=== PATIENT | male | born 1950 | race African-American/Black ===

== ENCOUNTER 2019-09-06 16:07 | Inpatient (IN) ==
[2019-09-06] MEDS ORDERED: methylPREDNISolone SOD SUC 125 MG/2 ML VIAL IV STA (16:34)
[2019-09-06] MEDS ORDERED: ONDANSETRON 4 MG/2 ML VIAL IV STA (16:34)
[2019-09-06] MEDS ORDERED: FUROSEMIDE 100 MG/10 ML VIAL IV STA (16:34)
[2019-09-06] MEDS ORDERED: hydrALAZINE 20 MG/1 ML VIAL IV STA (16:34)
[2019-09-06] MEDS ORDERED: cefTRIAXone 1,000 MG in SODIUM CHLORIDE 0.9% 100 ML IV STA (16:34)
[2019-09-06] MEDS ORDERED: ALBUTEROL 2.5 MG/3 ML NEB RESP TX SCH (17:00)
[2019-09-06 17:22] LABS: Basophils % 0.4 % (0.0-0.8); Eosinophils % 0.1 % (0.00-10.9); Hematocrit 37.8 VOL% (42.0-52.0); Hemoglobin 11.9 GM/DL (14.0-18.0); Immature Granulocytes % 1.5 %; Immature Granulocytes Absolute 0.13 #; Lymphocytes # 1.5 10*3/uL (1.4-4.0); Lymphocytes % 17.9 % (21.2-54.2); Mean Corpuscular HGB Conc 31.5 GM/DL (32-36); Mean Corpuscular Volume 92.2 FL (87-102); Mean Platelet Volume 13.4 FL (9.6-12.0); Monocytes % 2.7 % (1.7-12.7); NRBC # 0.02 10*3/uL; Neutrophils % 77.4 % (38.7-73.9); Platelet Count 209 T/CUMM (130-400); White Blood Count 8.4 T/CUMM (4-12)
[2019-09-06] MEDS ORDERED: MORPHINE 4 MG/1 ML VIAL ONE (17:26)
[2019-09-06] MEDS ORDERED: FUROSEMIDE 40 MG/4 ML VIAL IV ONE (17:28)
[2019-09-06] MEDS ORDERED: VECURONIUM 10 MG VIAL IV STA (17:29)
[2019-09-06] MEDS ORDERED: ETOMIDATE 20 MG/10 ML VIAL IV STA (17:29)
[2019-09-06] MEDS ORDERED: PROPOFOL 1,000 MG/100 ML BOTTLE IV ONE (17:31)
[2019-09-06 17:43] LABS: PT Patient Result 11.2 SECS (9.6-12.2)
[2019-09-06] MEDS: PROPOFOL 1,000 MG/100 ML BOTTLE IV SCH ×2 (17:45→23:51)
[2019-09-06 17:49] LABS: Albumin 3.7 G/DL (3.4-5.0); Bilirubin,Total 1.4 MG/DL (0.2-1.0); Osmolality,Calculated 290.6 MOS/KG (273-304); Total Protein 7.7 G/DL (6.4-8.3)
[2019-09-06 17:51] LABS: Troponin I 0.311 NG/ML (0.00-0.045)
[2019-09-06 17:52] LABS: ABG Base Excess -8.1 MMOL/L (-2.5-2.5); ABG Oxygen Saturation 99.4 % (95-100); ABG PCO2 60.6 MM HG (35-48); Allen Test Positive; Pt O2 Delivery Device Ventilator
[2019-09-06 17:54] LABS: ABG PH 7.164 (7.35-7.45)
[2019-09-06] MEDS ORDERED: ALBUTEROL 2.5 MG/3 ML NEB RESP TX PRN (18:02)
[2019-09-06] MEDS ORDERED: ONDANSETRON 4 MG/2 ML VIAL IV PRN (18:02)
[2019-09-06] MEDS ORDERED: MAGNESIUM SULF RIDER 2 GM in PREMIX 1 EACH IV PRN (18:02)
[2019-09-06] MEDS ORDERED: MAGNESIUM SULF RIDER 4 GM in PREMIX 1 EACH IV PRN (18:02)
[2019-09-06] MEDS ORDERED: ETOMIDATE 20 MG/10 ML VIAL IV ONE (18:04)
[2019-09-06] MEDS ORDERED: VECURONIUM 10 MG VIAL IV ONE (18:04)
[2019-09-06] MEDS ORDERED: BUDESONIDE/FORMOTEROL 160-4.5 INHALER 6 GM INH PRN (18:13)
[2019-09-06 18:15] LABS: Apearance,Urine CLEAR (Clear); Bilirubin,Urine Negative (Negative); Blood, Urine Small mg/dL (Negative); Glucose,Urine (UA) Negative (Negative); Hyaline Casts,Urine 6 /LPF (0-3); Ketones,Urine Negative (Negative); Mucus,Urine Occasional /LPF (Occasional); Nitrite,Urine Negative (Negative); Protein,Urine Negative; RBC,Urine 5 /HPF (0-4); Urine Color Yellow (Yellow); Urine Specific Gravity 1.019 (1.001-1.035); Urine Urobilinogen < 2.0 EU/DL (0.2-1.0); WBC,Urine 1 /HPF (0-6)
[2019-09-06 18:17] LABS: Barbiturates Screen,Urine Negative (Negative); Benzodiazepines Screen,Urine Negative (Negative); Cannabinoid Screen,Urine Negative (Negative); Opiate Screen,Urine Negative (Negative); Phencyclidine Screen,Urine Negative (Negative)
[2019-09-06] MEDS ORDERED: SODIUM BICARBONATE 50 MEQ/50 ML VIAL IV STA (18:28)
[2019-09-06] MEDS ORDERED: SODIUM BICARBONATE 50 MEQ/50 ML SYRINGE IV ONE (18:28)
[2019-09-06] MEDS ORDERED: SODIUM CHLORIDE 0.9% 500 ML IV STA (19:00)
[2019-09-06] MEDS ORDERED: LABETALOL 20 MG/4 ML SYRINGE IV PRN (19:02)
[2019-09-06] MEDS ORDERED: niCARdipine INJ 25 MG in SODIUM CHLORIDE 0.9% 240 ML IV PRN (19:02)
[2019-09-06] MEDS: LEVALBUTEROL 1.25 MG/3 ML NEB RESP TX SCH (19:36)
[2019-09-06] MEDS: fentaNYL INJ 1,250 MCG in SODIUM CHLORIDE 0.9% 225 ML IV PRN (20:55)
[2019-09-06] MEDS: carvediloL 3.125 MG TABLET PO SCH (22:26)
[2019-09-06] MEDS: PHENYLEPHRINE DRIP 40 MG/250 ML PREMIX IV PRN (23:46)
[2019-09-06] MEDS: ATORVASTATIN 80 MG TABLET PO SCH (23:52)
[2019-09-06] MEDS: SUCRALFATE 1 GM TABLET PO SCH (23:52)
[2019-09-06] MEDS: FERROUS SULFATE 325 MG TABLET PO SCH (23:52)
[2019-09-07] MEDS: PANTOPRAZOLE 40 MG VIAL IV SCH ×2 (00:05→18:48)
[2019-09-07] MEDS: ENOXAPARIN 40 MG/0.4 ML SYRINGE SUBCUT SCH ×2 (00:06→20:55)
[2019-09-07] MEDS: LATANOPROST 0.005% OPH SOLN 2.5 ML BOTTLE BOTH EYES SCH ×2 (00:06→20:55)
[2019-09-07] MEDS: fentaNYL INJ 1,250 MCG in SODIUM CHLORIDE 0.9% 225 ML IV PRN ×3 (03:46→18:53)
[2019-09-07 04:10] LABS: ABG Base Excess -0.1 MMOL/L (-2.5-2.5); ABG HCO3 25.2 MMOL/L (20-26); ABG Oxygen Saturation 96.3 % (95-100); ABG PCO2 43.7 MM HG (35-48); ABG PH 7.378 (7.35-7.45); ABG PO2 94.9 MM HG (80-95); ABG TCO2 26.5 MMOL/L (23-27); Allen Test Positive; Pt O2 Delivery Device Ventilator
[2019-09-07] MEDS: PROPOFOL 1,000 MG/100 ML BOTTLE IV SCH ×4 (05:00→20:17)
[2019-09-07] MEDS: LEVALBUTEROL 1.25 MG/3 ML NEB RESP TX SCH ×4 (06:58→20:14)
[2019-09-07 08:03] LABS: Basophils % 0.4 % (0.0-0.8); Hematocrit 36.9 VOL% (42.0-52.0); Hemoglobin 11.7 GM/DL (14.0-18.0); Immature Granulocytes % 1.3 %; Immature Granulocytes Absolute 0.14 #; Lymphocytes # 1.1 10*3/uL (1.4-4.0); Mean Corpuscular HGB Conc 31.7 GM/DL (32-36); Mean Corpuscular Volume 92.9 FL (87-102); Mean Platelet Volume 13.2 FL (9.6-12.0); Monocytes % 3.1 % (1.7-12.7); NRBC # 0.02 10*3/uL; Neutrophils % 85.2 % (38.7-73.9); Platelet Count 195 T/CUMM (130-400); Red Blood Count 3.97 MC/CUMM (3.8-5.5); Red Cell Distribution Width 16.1 % (9.3-17.3); White Blood Count 10.6 T/CUMM (4-12)
[2019-09-07 08:24] LABS: Albumin 3.2 G/DL (3.4-5.0); Calcium 8.1 MG/DL (8.5-10.1); Osmolality,Calculated 291.6 MOS/KG (273-304)
[2019-09-07] MEDS: carvediloL 3.125 MG TABLET PO SCH (08:27)
[2019-09-07] MEDS: LISINOPRIL 10 MG TABLET PO SCH (08:28)
[2019-09-07] MEDS: SUCRALFATE 1 GM TABLET PO SCH ×2 (08:41→20:55)
[2019-09-07] MEDS: FERROUS SULFATE 325 MG TABLET PO SCH ×2 (08:41→20:55)
[2019-09-07] MEDS: ASPIRIN EC 81 MG TABLET PO SCH (08:41)
[2019-09-07] MEDS: FUROSEMIDE 40 MG/4 ML VIAL IV SCH ×2 (08:42→16:10)
[2019-09-07] MEDS: POTASSIUM CHLORIDE RIDER 10 MEQ in PREMIX 1 EACH IV PRN ×2 (13:00→14:30)
[2019-09-07] MEDS: PHENYLEPHRINE DRIP 40 MG/250 ML PREMIX IV PRN (23:00)
[2019-09-08] MEDS: LEVALBUTEROL 1.25 MG/3 ML NEB RESP TX SCH ×4 (00:52→19:35)
[2019-09-08] MEDS: fentaNYL INJ 1,250 MCG in SODIUM CHLORIDE 0.9% 225 ML IV PRN (03:21)
[2019-09-08] MEDS: PROPOFOL 1,000 MG/100 ML BOTTLE IV SCH (03:25)
[2019-09-08 04:06] LABS: ABG Base Excess 2.5 MMOL/L (-2.5-2.5); ABG HCO3 26.7 MMOL/L (20-26); ABG Oxygen Saturation 99.7 % (95-100); ABG PCO2 38.4 MM HG (35-48); ABG PH 7.448 (7.35-7.45); Allen Test Positive; Pt O2 Delivery Device Ventilator
[2019-09-08 04:49] LABS: Basophils % 0.4 % (0.0-0.8); Hematocrit 33.9 VOL% (42.0-52.0); Hemoglobin 10.9 GM/DL (14.0-18.0); Immature Granulocytes % 1.2 %; Immature Granulocytes Absolute 0.13 #; Lymphocytes % 26.5 % (21.2-54.2); Mean Corpuscular HGB Conc 32.2 GM/DL (32-36); Mean Corpuscular Volume 92.4 FL (87-102); Mean Platelet Volume 13.7 FL (9.6-12.0); Monocytes % 6.8 % (1.7-12.7); NRBC # 0.02 10*3/uL; Neutrophils % 65.1 % (38.7-73.9); Platelet Count 141 T/CUMM (130-400); Red Blood Count 3.67 MC/CUMM (3.8-5.5); White Blood Count 11.3 T/CUMM (4-12)
[2019-09-08 05:11] LABS: Bilirubin,Total 1.2 MG/DL (0.2-1.0); Calcium 8.4 MG/DL (8.5-10.1); Osmolality,Calculated 293.4 MOS/KG (273-304); Total Protein 6.4 G/DL (6.4-8.3)
[2019-09-08 05:12] LABS: Platelet Estimate Adequate; Polychromasia Few
[2019-09-08] MEDS: POTASSIUM CHLORIDE RIDER 10 MEQ in PREMIX 1 EACH IV PRN ×2 (06:15→07:46)
[2019-09-08] MEDS: ASPIRIN EC 81 MG TABLET PO SCH (08:40)
[2019-09-08] MEDS: SUCRALFATE 1 GM TABLET PO SCH ×2 (08:40→21:10)
[2019-09-08] MEDS: FERROUS SULFATE 325 MG TABLET PO SCH ×2 (08:40→21:10)
[2019-09-08] MEDS: FUROSEMIDE 40 MG/4 ML VIAL IV SCH ×2 (08:44→16:19)
[2019-09-08 11:55] LABS: ABG Base Excess 2.2 MMOL/L (-2.5-2.5); ABG HCO3 26.3 MMOL/L (20-26); ABG Oxygen Saturation 96.2 % (95-100); ABG PCO2 50.9 MM HG (35-48); ABG PH 7.358 (7.35-7.45); ABG PO2 92.8 MM HG (80-95); ABG TCO2 25.6 MMOL/L (23-27); Pt O2 Delivery Device Simple Mask
[2019-09-08] MEDS: PANTOPRAZOLE 40 MG VIAL IV SCH (18:23)
[2019-09-08] MEDS: ENOXAPARIN 40 MG/0.4 ML SYRINGE SUBCUT SCH (21:10)
[2019-09-08] MEDS: LATANOPROST 0.005% OPH SOLN 2.5 ML BOTTLE BOTH EYES SCH (21:42)
[2019-09-09] MEDS: LEVALBUTEROL 1.25 MG/3 ML NEB RESP TX SCH ×4 (00:38→19:43)
[2019-09-09 03:02] LABS: Basophils % 0.2 % (0.0-0.8); Eosinophils % 0.1 % (0.00-10.9); Hematocrit 35.4 VOL% (42.0-52.0); Hemoglobin 11.1 GM/DL (14.0-18.0); Immature Granulocytes % 1.1 %; Lymphocytes % 22.2 % (21.2-54.2); Mean Corpuscular HGB Conc 31.4 GM/DL (32-36); Mean Corpuscular Volume 92.9 FL (87-102); Mean Platelet Volume 13.5 FL (9.6-12.0); Monocytes % 6.2 % (1.7-12.7); Neutrophils % 70.2 % (38.7-73.9); Platelet Count 167 T/CUMM (130-400); Red Blood Count 3.81 MC/CUMM (3.8-5.5); Red Cell Distribution Width 15.8 % (9.3-17.3); White Blood Count 9.2 T/CUMM (4-12)
[2019-09-09 03:25] LABS: Calcium 8.5 MG/DL (8.5-10.1); Osmolality,Calculated 289.6 MOS/KG (273-304)
[2019-09-09] MEDS: POTASSIUM CHLORIDE RIDER 10 MEQ in PREMIX 1 EACH IV PRN ×3 (04:05→06:15)
[2019-09-09] MEDS: ASPIRIN EC 81 MG TABLET PO SCH (09:44)
[2019-09-09] MEDS: SUCRALFATE 1 GM TABLET PO SCH ×2 (09:44→22:18)
[2019-09-09] MEDS: FERROUS SULFATE 325 MG TABLET PO SCH ×2 (09:44→22:17)
[2019-09-09] MEDS: FUROSEMIDE 40 MG/4 ML VIAL IV SCH (10:56)
[2019-09-09] MEDS: FUROSEMIDE 40 MG TABLET PO SCH (16:00)
[2019-09-09] MEDS: carvediloL 3.125 MG TABLET PO SCH (17:30)
[2019-09-09] MEDS: PANTOPRAZOLE 40 MG VIAL IV SCH (18:21)
[2019-09-09] MEDS: LATANOPROST 0.005% OPH SOLN 2.5 ML BOTTLE BOTH EYES SCH (22:17)
[2019-09-09] MEDS: ENOXAPARIN 40 MG/0.4 ML SYRINGE SUBCUT SCH (22:18)
[2019-09-09] MEDS: ATORVASTATIN 80 MG TABLET PO SCH (22:18)
[2019-09-10] MEDS: LEVALBUTEROL 1.25 MG/3 ML NEB RESP TX SCH ×2 (00:12→07:28)
[2019-09-10 05:56] LABS: Calcium 9.2 MG/DL (8.5-10.1); Osmolality,Calculated 289.6 MOS/KG (273-304)
[2019-09-10] MEDS: POTASSIUM CHLORIDE RIDER 10 MEQ in PREMIX 1 EACH IV PRN (07:53)
[2019-09-10] MEDS: ASPIRIN EC 81 MG TABLET PO SCH ×2 (07:54→08:06)
[2019-09-10] MEDS: FUROSEMIDE 40 MG TABLET PO SCH (07:54)
[2019-09-10] MEDS: FERROUS SULFATE 325 MG TABLET PO SCH ×2 (07:54→08:06)
[2019-09-10] MEDS: LISINOPRIL 10 MG TABLET PO SCH ×2 (07:54→08:06)
[2019-09-10] MEDS: SUCRALFATE 1 GM TABLET PO SCH ×2 (07:54→08:06)
[2019-09-10] MEDS: carvediloL 3.125 MG TABLET PO SCH (07:54)
[2019-09-10] MEDS ORDERED: POTASSIUM CHLORIDE 20 MEQ TABLET PO ONE (10:35)
[2019-09-10 11:42] VITALS: BP 116/58
== END 2019-09-10 12:22 | disposition home or self-care (01) | DRG 208 ==
LOC: EDBD → N.ED 16:07 → SUATTDRO 18:03 → N.EDINP 18:03 → N.CC 19:04 → N.TELES 09-09 17:55
PROVIDERS: ADMIT Internal Medicine